=== PATIENT | male | born 1990 | race Caucasian/White ===

== ENCOUNTER 2021-02-17 23:23 | Emergency (ER) | payer OTHER ==
[~2021-02-17 23:23] MED LIST: BENADRYL 25MG C25 MG PO; EPINEPHRIN0.3 MG/0.3 INJ; PREDNISONE10 MG PO
[2021-02-18 00:45] LABS: HEMOGLOBIN 16.9 gm/dl (14.0-17.5); RED BLOOD COUNT 5.42 M/UL (4.20-5.50); WHITE BLOOD COUNT 8.5 K/UL (4.5-11.0)
[2021-02-18 00:52] LABS: BUN/CREATININE RATIO 10 (0-10)
[2021-02-18] MEDS ORDERED: BENTYL 10MG CAP10 MG PO (02:12)
[2021-02-18] MEDS ORDERED: ZOFRAN4 MG PO (02:12)
== END 2021-02-18 02:35 | disposition home or self-care (01) ==
LOC: ER1 23:23
PROVIDERS: Physician Assistant Medical
DX: R10.30 Lower abdominal pain, unspecified (principal); R10.814 Left lower quadrant abdominal tenderness; R11.0 Nausea; Z88.0 Allergy status to penicillin
CPT/HCPCS: 71045; 80053; 81001; 84484; 85025; 85652; 86140; 93005; 96374; 96375; 99284; J2405